=== PATIENT | male | born 1965 | race Caucasian/White ===

== ENCOUNTER 2017-04-14 13:17 | Outpatient (CLI) | payer OTHER ==
[2017-04-14 14:32] LABS: Mean Corpuscular HGB CONC 33.1 g/dL (32.0-36.0); Mean Corpuscular Hemoglobin 31.7 pg (27.0-31.0); Mean Corpuscular Volume 95.8 fl (80.0-94.0); Mean Platelet Volume 7.5 fL (7.4-10.4); Platelet Count 214 thou/uL (130-400); White Blood Cell (WBC) Count 9.4 thou/uL (4.8-10.8)
[2017-04-14 14:52] LABS: INR-International Normal Ratio 0.9; PTT 28.9 SEC (22.9-36.1); Prothrombin Time 12.7 SEC (12.0-14.7)
[2017-04-14 14:53] LABS: ALT (SGPT) 24 U/L (8-55); AST (SGOT) 23 U/L (5-34); Albumin 4.3 g/dL (3.5-5.0); Alkaline Phosphatase 75 U/L (40-150); Anion Gap 10 mmol/L (10-20); BUN (Urea Nitrogen) 15 mg/dL (8.4-25.7); Bilirubin, Total 0.3 mg/dL (0.2-1.2); Calc. Creatinine Clearance 0 mL/min (70-130); Calcium 9.5 mg/dL (7.8-10.44); Carbon Dioxide 25 mmol/L (22-29); Chloride 106 mmol/L (98-107); Estimated GFR-MDRD Greater than 90; Globulin 2.9 g/dL (2.4-3.5); Glucose 106 mg/dL (70-105); Potassium 3.6 mmol/L (3.5-5.1); Protein, Total 7.2 g/dL (6.0-8.3); Sodium 137 mmol/L (136-145)
== END 2017-04-14 13:18 | disposition home or self-care (01) ==
LOC: LABBT 13:17
PROVIDERS: ATTEND Internal Medicine Cardiovascular Disease
DX: Z01.818 Encounter for other preprocedural examination (principal); I71.2 Thoracic aortic aneurysm, without rupture
CPT/HCPCS: 80053; 85027; 85610; 85730; 93005; 93010

== ENCOUNTER → 2017-04-15 | Day surgery (SDC) | payer OTHER ==
[2017-04-14 13:45] VITALS: BMI 27.6
[~2017-04-15] MED LIST: Fentanyl 100 MCG/2 ML VIAL ONE; Heparin 10,000 UNITS/1 ML VIAL ONE; Iopamidol 370 76% 100 ML VIAL ONE; Lidocaine 1% (PF) 30 ML VIAL ONE; Midazolam HCl 2 mg/2 ml Vial ONE; Nitroglycerin 100MG/250ML BOT 250 ML ONE; Verapamil 5 MG/2 ML VIAL ONE
== END ==
LOC: CCL 05:32
PROVIDERS: ATTEND Internal Medicine Cardiovascular Disease
PROC: B2151ZZ Fluoroscopy of Left Heart using Low Osmolar Contrast (ICD-10-PCS; principal; 2017-04-15)
PROC: 4A023N7 Measurement of Cardiac Sampling and Pressure, Left Heart, Percutaneous Approach (ICD-10-PCS; principal; 2017-04-15)
DX: I71.2 Thoracic aortic aneurysm, without rupture (principal); I10 Essential (primary) hypertension; Z79.899 Other long term (current) drug therapy
CPT/HCPCS: 80053; 85027; 85610; 85730; 93005; 93010; 93458; 99152; C1769; J1644; J2001; J2250; J3010

== ENCOUNTER 2017-08-04 12:31 | Outpatient (CLI) | payer OTHER ==
[~2017-08-04 12:31] MED LIST changes: -Fentanyl 100 MCG/2 ML VIAL ONE; -Heparin 10,000 UNITS/1 ML VIAL ONE; -Lidocaine 1% (PF) 30 ML VIAL ONE; -Midazolam HCl 2 mg/2 ml Vial ONE; -Nitroglycerin 100MG/250ML BOT 250 ML ONE; -Verapamil 5 MG/2 ML VIAL ONE
== END 2017-08-04 12:32 | disposition home or self-care (01) ==
LOC: BICCT 12:31
PROVIDERS: ATTEND Thoracic Surgery (Cardiothoracic Vascular Surgery)
DX: I71.2 Thoracic aortic aneurysm, without rupture (principal); Z95.828 Presence of other vascular implants and grafts
CPT/HCPCS: 71275; 74175

== ENCOUNTER 2018-12-30 09:49 | Outpatient (CLI) | payer BC ==
--- NOTE | 2018-12-30 11:05 | CT ---
CTA OF THE CHEST AND ABDOMEN WITH AND WITHOUT IV CONTRAST UTILIZING AN AORTIC DISSECTION PROTOCOL AND 3-D REFORMATTED IMAGING. INDICATION: Thoracic aortic aneurysm without rupture COMPARISON: None FINDINGS: Aorta: The endograft stent bypassing a descending thoracic aortic aneurysm is unchanged in position a nd fully opacifies. The excluded aneurysmal sac measures its greatest axial dimension on image 142 of series 4, 4.7 x 4.8 cm, slightly decreased in size from the comparison examination, where it measu red 5.1 x 5 cm. The small saccular aneurysm involving the distal aortic arch is unchanged in size measuring 1.9 cm in its greatest axial dimension. No acute aortic stenosis, occlusion or aneurysmal f ormation is demonstrated. Central pulmonary artery: No central pulmonary embolus demonstrated. Additional thorax findings: No focal consolidation, pleural effusion or pneumothorax is evident. Additional abdominal findings: No hemodynamically significant stenosis is seen involving the celiac, SMA, renal or SHAYNA branches. Both common iliac arteries are widely patent. The iliac bifurcations appear patent. There is mild narrowing involving the proximal internal iliac arteries bilaterally whi ch is stable. There are stable small right renal cysts. The largest cyst is seen exophytically off of the right mid kidney measuring 2.7 cm. Osseous structures: No acute osseous abnormality. IMPRESSION: 1. Stable descending thoracic aortic endograft stent. The excluded aneurysmal sac has decreased in si ze from the comparison examination dated August 04, 2017. 2. Stable small saccular aneurysm off the distal aortic arch. 3. No new hemodynamically significant stenosis involving the abdominal aorta. There is stable mild na rrowing involving the proximal internal iliac arteries bilaterally. 4. Stable right renal cysts
[2018-12-30] MEDS ORDERED: Iopamidol-370 76% 500 ML 1 ML ONE (13:53)
== END 2018-12-30 09:50 | disposition home or self-care (01) ==
LOC: BICCT 09:49
PROVIDERS: ATTEND Thoracic Surgery (Cardiothoracic Vascular Surgery)
DX: I71.2 Thoracic aortic aneurysm, without rupture (principal); N28.1 Cyst of kidney, acquired; I77.1 Stricture of artery; Z95.828 Presence of other vascular implants and grafts
CPT/HCPCS: 71275; 74175; Q9967

== ENCOUNTER 2019-12-29 07:50 | Outpatient (CLI) | payer BC ==
--- NOTE | 2019-12-29 09:57 | CT ---
CTA CHEST AND ABDOMEN WITH IV CONTRAST AND 3D POSTPROCESSING: Date: 12/29/2019 HISTORY: Thoracic aortic aneurysm without rupture. COMPARISON: 12/30/2018 and 08/04/2017. FINDINGS: The endograft stent in the descending thoracic aortic aneurysm remains unchanged in position and demo nstrates complete opacification. The excluded aneurysmal sac is stable, measuring 4.7 x 4.8 cm (image 45, series 3). The small saccular aneurysm involving the distal aortic arch, distal to the left subc lavian artery origin, is also stable, measuring 1.9 cm. Subtle intimal dissection at this level is st able posteriorly. The dilated right intercostal artery feeding into the aorta at the level of the stent and the dilated right internal mammary artery are again noted and stable. The central pulmonary arteries demonstrate no filling defects to suggest central pulmonary embolism. There is good flow without significant stenosis in the renal arteries, celiac axis, SMA, and SHAYNA. The common iliac arteries are widely patent. No pleural or pericardial effusions are seen. No focal areas of consolidation, pneumothoraces, or tarsha g nodules/masses are noted. There is a 3.0 cm exophytic cyst arising from the right kidney. Other small density lesions are also likely cysts in the right kidney. No calcified gallstones are seen. No free fluid is seen in the abdomen. The liver, spleen, pancreas, adrenal glands, and left kidney are stable. IMPRESSION: 1. Stable descending thoracic aortic endograft stent with stable size of the aneurysmal sac. 2. Stable small saccular aneurysm arising from the distal aortic arch. 3. Right renal cysts. POS: OFF
[2019-12-29] MEDS ORDERED: Iopamidol 370 76% 100 ML VIAL ONE (14:24)
== END 2019-12-29 07:51 | disposition home or self-care (01) ==
LOC: BICCT 07:50
PROVIDERS: ATTEND Thoracic Surgery (Cardiothoracic Vascular Surgery)
DX: I71.2 Thoracic aortic aneurysm, without rupture (principal); N28.1 Cyst of kidney, acquired; Z95.828 Presence of other vascular implants and grafts
CPT/HCPCS: 71275; 74175; Q9967

== ENCOUNTER 2022-03-05 11:42 | Outpatient (CLI) | payer BC ==
[2022-03-05] MEDS ORDERED: Iopamidol 370 76% 100 ML VIAL ONE (13:07)
== END 2022-03-05 11:43 | disposition home or self-care (01) ==
LOC: CT 11:42
PROVIDERS: ATTEND Thoracic Surgery (Cardiothoracic Vascular Surgery)
DX: I71.23 Aneurysm of the descending thoracic aorta, without rupture (principal); I71.22 Aneurysm of the aortic arch, without rupture; Z95.828 Presence of other vascular implants and grafts
CPT/HCPCS: 71275; 74174; Q9967